=== PATIENT | male | born 1970 | race African-American/Black ===

== ENCOUNTER 2016-11-13 03:44 | Emergency (ER) | payer MEDICAID ==
[~2016-11-13] VITALS: Ht 172.7 cm; Wt 79.0 kg
[2016-11-13] MEDS ORDERED: SODIUM CHLORIDE 0.9% 1,000 ML IV ONE (08:07)
[2016-11-13] MEDS ORDERED: MORPHINE SULFATE 4 MG/ML CPJ (NOT FOR IM USE) IV STA (08:07)
[2016-11-13] MEDS ORDERED: ONDANSETRON HCL 4MG/2ML VIAL IV STA (08:07)
[2016-11-13 08:28] LABS: BASOPHILS % 0.3 % (0.0-2.0); HEMATOCRIT. 46.6 % (42.0-52.0); HEMOGLOBIN. 15.8 g/dL (14.0-18.0); LYMPHOCYTES % 7.4 % (20.0-50.0); MEAN CORPUSCULAR HEMOGLOBIN 30.3 pg (28.0-32.0); MEAN CORPUSCULAR VOLUME 89.5 fL (80.0-94.0); MEAN PLATELET VOLUME 8.3 fl (7.4-10.4); MONOCYTES % 4.8 % (2.0-8.0); NEUTROPHILS % 87.5 % (40.0-76.0); PLATELET 243 x1000/uL (130-400); RED BLOOD CELL COUNT 5.21 mill/uL (4.7-6.1); RED CELL DISTRIBUTION WIDTH 13.2 % (11.6-14.6)
[2016-11-13 08:32] LABS: CHLORIDE 106 mEq/L (98-107)
[2016-11-13 08:33] LABS: PROTHROMBIN TIME 10.8 sec (9.4-11.6)
[2016-11-13 08:42] LABS: CARBON DIOXIDE 23 mEq/L (21-32)
[2016-11-13 11:11] LABS: CLARITY URINE CLEAR (CLEAR); COLOR URINE YELLOW (YELLOW); GLUCOSE URINE NEGATIVE (NEGATIVE); KETONES URINE 1+ (NEGATIVE); LEUKOCYTE ESTERASE URINE NEGATIVE (NEGATIVE); NITRITE URINE NEGATIVE (NEGATIVE); OCCULT BLOOD URINE NEGATIVE (NEGATIVE); PH URINE >=9.0 (4.5-8.0); PROTEIN URINE NEGATIVE (NEGATIVE); SPECIFIC GRAVITY URINE 1.023 (1.005-1.030); UROBILINOGEN URINE 0.2 E.U./dL (0.2-1.0)
[2016-11-13 11:35] VITALS: BP 139/93
== END 2016-11-13 11:40 | disposition home or self-care (01) ==
LOC: ER 08:23
DX: K52.9 Noninfective gastroenteritis and colitis, unspecified (principal); K76.0 Fatty (change of) liver, not elsewhere classified; F17.210 Nicotine dependence, cigarettes, uncomplicated; D72.829 Elevated white blood cell count, unspecified; Z88.2 Allergy status to sulfonamides
CPT/HCPCS: 36415; 74176; 80053; 81003; 83690; 85025; 85610; 96361; 96374; 96375; 99285; J2270; J2405; Z7610; J7030

== ENCOUNTER 2020-07-07 00:37 | Emergency (ER) | payer SELFPAY ==
[~2020-07-07] VITALS: Ht 170.2 cm; Wt 71.1 kg
[2020-07-07 01:33] LABS: CLARITY URINE CLEAR (CLEAR); COLOR URINE YELLOW (YELLOW); KETONES URINE TRACE (NEGATIVE); LEUKOCYTE ESTERASE URINE TRACE (NEGATIVE); NITRITE URINE NEGATIVE (NEGATIVE); OCCULT BLOOD URINE NEGATIVE (NEGATIVE); PH URINE 5.5 (4.5-8.0); PROTEIN URINE NEGATIVE (NEGATIVE); SPECIFIC GRAVITY URINE 1.034 (1.005-1.030)
[2020-07-07] MEDS ORDERED: CEFTRIAXONE SODIUM 500 MG/VIAL IM SCH (04:30)
[2020-07-07] MEDS ORDERED: LIDOCAINE HCL 1% 20ML VIAL (Pyxis) INJ INFIL SCH (04:30)
[2020-07-07] MEDS ORDERED: AZITHROMYCIN 500 MG TABLET PO SCH (04:30)
[2020-07-07] MEDS ORDERED: NAPR-681 MT (04:41)
[2020-07-07] MEDS ORDERED: CLOT14.2 TP (04:41)
[2020-07-07 05:02] VITALS: BP 126/78
== END 2020-07-07 05:02 | disposition home or self-care (01) ==
LOC: ER 00:37
DX: N34.2 Other urethritis (principal); N48.1 Balanitis; R07.81 Pleurodynia; Z88.2 Allergy status to sulfonamides; Z88.8 Allergy status to other drugs, medicaments and biological substances
CPT/HCPCS: 81003; 96372; 99283; J0696; J3490

== ENCOUNTER 2024-04-24 15:34 | Emergency (ER) | payer OTHER ==
[~2024-04-24] VITALS: Ht 170.2 cm; Wt 68.0 kg
[~2024-04-24 15:34] MED LIST: CLOT14.2 TP; NAPR-681 MT
[2024-04-24 15:44] VITALS: O2SAT 99
[2024-04-24 18:39] LABS: CHLORIDE 108 mEq/L (98-107); POTASSIUM 3.7 mEq/L (3.5-5.1); PROTHROMBIN TIME 11.4 sec (9.6-11.0); SODIUM 142 mEq/L (136-145)
[2024-04-24 18:40] LABS: CALCIUM 9.7 mg/dL (8.7-10.4); CARBON DIOXIDE 22 mEq/L (21-32)
[2024-04-24 18:41] LABS: CLARITY URINE CLEAR (CLEAR); COLOR URINE YELLOW (YELLOW); GLUCOSE URINE NEGATIVE (NEGATIVE); KETONES URINE 4+ (NEGATIVE); LEUKOCYTE ESTERASE URINE TRACE (NEGATIVE); NITRITE URINE NEGATIVE (NEGATIVE); OCCULT BLOOD URINE NEGATIVE (NEGATIVE); PH URINE 8.5 (4.5-8.0); PROTEIN URINE 1+ (NEGATIVE); SPECIFIC GRAVITY URINE 1.031 (1.005-1.030)
[2024-04-24 18:45] LABS: CREATININE 1.1 mg/dL (0.6-1.3); GLUCOSE 187 mg/dL (70-105); UREA NITROGEN BLOOD 16 mg/dL (9-23)
[2024-04-24 18:47] LABS: ALANINE AMINOTRANSFERASE 24 IU/L (10-49); ALBUMIN 4.9 g/dL (3.2-4.8); ASPARTATE AMINOTRANSFERASE 22 IU/L (<34); BILIRUBIN DIRECT 0.6 mg/dL (<=3.0); BILIRUBIN TOTAL 1.6 mg/dL (0.1-1.0); HEMATOCRIT. 44.9 % (42.0-52.0); HEMOGLOBIN. 14.8 g/dL (14.0-18.0); MEAN CORPUSCULAR HEMOGLOBIN 30.6 pg (28.0-32.0); MEAN CORPUSCULAR VOLUME 92.8 fL (80.0-94.0); MEAN PLATELET VOLUME 8.1 fl (7.4-10.4); PLATELET 255 x1000/uL (130-400); RED BLOOD CELL COUNT 4.84 mill/uL (4.7-6.1); RED CELL DISTRIBUTION WIDTH 13.1 % (11.6-14.6); WHITE BLOOD COUNT 11.4 x1000/uL (4.5-11.0)
[2024-04-24 18:48] LABS: ETHANOL BLOOD < 10 mg/dL (<10)
[2024-04-24 18:51] LABS: DIFFERENTIAL COMMENT 1
[2024-04-24] MEDS: MAGNESIUM/ALUMINUM HYDROXIDE/SIMETHICONE 30ML UDC PO STA (19:13)
[2024-04-24] MEDS: ONDANSETRON 4MG ODT PO STA (19:14)
[2024-04-24] MEDS: FAMOTIDINE 20MG TABLET PO ONE (19:14)
[2024-04-24] MEDS: DICYCLOMINE 10 MG/5 ML ORAL SYR PO STA (19:22)
[2024-04-24 19:28] LABS: BACTERIA URINE 2+; RBC URINE NONE SEEN /hpf (0-2); SQUAMOUS EPITHELIAL CELL URINE RARE /lpf (RARE/1+); WBC URINE 0-2 /hpf (0-2)
[2024-04-24] MEDS: DICYCLOMINE HCL 10MG CAPSULE PO SCH (20:02)
[2024-04-24] MEDS ORDERED: IBUP-2029 MT (21:00)
[2024-04-24] MEDS: KETOROLAC 30MG/ML VIAL IM ONE (21:18)
[2024-04-24] MEDS: IBUPROFEN 600MG TABLET PO ONE (21:24)
[2024-04-24 21:25] VITALS: BP 156/88; PULSE 86; RESP 17; TEMP 37.1; O2SAT 99
[2024-04-24 21:45] LABS: PLATELET ESTIMATE NORMAL
== END 2024-04-24 21:26 | disposition home or self-care (01) ==
LOC: ER 15:34
DX: A08.4 Viral intestinal infection, unspecified (principal); Z88.1 Allergy status to other antibiotic agents; Z88.2 Allergy status to sulfonamides
CPT/HCPCS: 80076; 80048; 81003; 80320; 83690; 85025; 85610; 36415; 76700; 99284; Q0162; G0480